=== PATIENT | male | born 1935 | race Caucasian/White ===

== ENCOUNTER 2018-04-07 13:22 | Inpatient (IN) | payer MEDICARE, OTHER ==
--- NOTE | 2018-04-07 15:06 | EDM.PDOC ---
ED HPI GENERAL MEDICAL PROBLEM - General Chief Complaint: Cardiovascular Problem Stated Complaint: breathing problems swelling feet Time Seen by Provider: 04/07/18 14:35 Source of Information: Reports: Patient, Family History Limitations: Reports: No Limitations - History of Present Illness INITIAL COMMENTS - FREE TEXT/NARRATIVE: 83-year-old male with COPD, also coronary disease and a history of congestive heart failure has had increasing shortness of breath over the past 3 weeks. He has persistent and worsening peripheral edema and he feels generally swollen, even his eyelids. He is on prednisone and doxycycline as needed for COPD exacerbations and 20 mg of furosemide daily. He has had no pain. He has not recently taken prednisone or doxycycline. He does not have oxygen at home, every time he goes to the [place] his oxygen is "90", and it has to be less than 90 to get O2. He does have a nebulizer at home. On arrival to the emergency room he was dyspneic and O2 saturations were 86, 2 L of nasal cannula O2 was supplied which domenico his saturation to 91. Onset: Gradual Duration: Week(s): (3 weeks) Worsens with: Reports: Other (Any walking or physical activity causes increased symptoms, also lying flat at night seems to increased shortness of breath) Associated Symptoms: Reports: Shortness of Breath, Weakness. Denies: Chest Pain , Cough, Fever/Chills - Related Data Allergies Allergy/AdvReac Type Severity Reaction Status Date / Time egg Allergy Mild Vomiting Verified 04/07/18 18:34 Home Meds: Home Meds Aspirin [Halfprin] 81 mg PO WITHDINNER 04/07/18 [History] Carvedilol [Coreg] 25 mg PO BID 04/07/18 [History] Diphenoxylate HCl/Atropine [Lomotil] 1 tab PO Q6H PRN 04/07/18 [History] Doxycycline Hyclate 100 mg PO BID PRN 04/07/18 [History] Furosemide 20 mg PO DAILY 04/07/18 [History] Lisinopril 0.5 tab PO DAILY 04/07/18 [History] predniSONE [Prednisone] 40 mg PO ASDIRECTED PRN 04/07/18 [History] Past Medical History HEENT History: Reports: Hard of Hearing, Impaired Vision Cardiovascular History: Reports: Aneurysm, Congenital Septal Defect, Hypertension, [place] Respiratory History: Reports: COPD Gastrointestinal History: Reports: Other (See Below) Other Gastrointestinal History: hernia Genitourinary History: Reports: Other (See Below) Other Genitourinary History: slow to start Oncologic (Cancer) History: Reports: Other (See Below) Other Oncologic History: skin - Infectious Disease History Infectious Disease History: Reports: None - Past Surgical History Head Surgeries/Procedures: Reports: None HEENT Surgical History: Reports: Tonsillectomy Cardiovascular Surgical History: Reports: AAA Repair, Carotid Stents Respiratory Surgical History: Reports: None GI Surgical History: Reports: None Male Surgical History: Reports: None Oncologic Surgical History: Reports: Other (See Below) Other Oncologic Surgeries/Procedures: removed Dermatological Surgical History: Reports: None Social & Family History - Family History Family Medical History: Noncontributory - Tobacco Use Smoking Status *Q: Former Smoker Years of Tobacco use: 60 Packs/Tins Daily: 2 Used Tobacco, but Quit: Yes Month/Year Tobacco Last Used: 2013 Second Hand Smoke Exposure: No - Caffeine Use Caffeine Use: Reports: Coffee, Soda - Alcohol Use Days Per Week of Alcohol Use: 1 Number of Drinks Per Day: 2 Total Drinks Per Week: 2 Date of Last Drink: 04/06/18 Time of Last Drink: 17:00 - Recreational Drug Use Recreational Drug Use: No ED ROS GENERAL - Review of Systems Review Of Systems: See Below Constitutional: Reports: Malaise. Denies: Fever, Chills HEENT: Reports: No Symptoms Respiratory: Reports: Shortness of Breath. Denies: Pleuritic Chest Pain, Hemoptysis Cardiovascular: Reports: Dyspnea on Exertion, Orthopnea. Denies: Chest Pain, Palpitations GI/Abdominal: Reports: Other (Has an abdominal hernia which is asymptomatic). Denies: Abdominal Pain, Nausea, Vomiting : Reports: No Symptoms Musculoskeletal: Reports: Other (Left foot pain from a recent trauma, his stepped on his foot) Skin: Reports: Bruising (On the top of the left foot) Neurological: Reports: Weakness Psychiatric: Reports: No Symptoms ED EXAM, GENERAL - Physical Exam Exam: See Below Exam Limited By: No Limitations General Appearance: Alert, No Apparent Distress, Other (Initially dyspneic, better after rest and O2) Eye Exam: Bilateral Eye: EOMI Throat/Mouth: Normal Inspection Head: Atraumatic Respiratory/Chest: No Respiratory Distress, Rales, Other (Decreased breath sounds at the bases bilaterally with a few rales) Cardiovascular: Regular Rate, Rhythm, Systolic Murmur (Fairly prominent 3/6 systolic murmur), Extra Beats (Few ectopic beats per minute) GI/Abdominal: Soft, Non-Tender Extremities: Pedal Edema (1+ pedal edema bilaterally, slightly worse on the left ) Neurological: Alert, Oriented Psychiatric: Normal Affect, Normal Mood Skin Exam: Warm, Dry Course - Vital Signs Last Recorded V/S: Last Vital Signs Temp 97.4 F 04/08/18 07:23 Pulse 72 04/08/18 07:35 Resp 16 04/08/18 07:23 BP 133/76 04/08/18 07:23 Pulse Ox 94 L 04/08/18 07:35 - Orders/Labs/Meds Orders: Medication Orders Acetaminophen (Tylenol) 650 mg PO Q4H PRN PRN Reason: Pain (Mild 1-3)/fever Albuterol (Proventil Neb Soln) 2.5 mg NEB Q4H PRN PRN Reason: Shortness Of Breath/wheezing Last Admin: 04/07/18 21:07 Dose: 2.5 mg Albuterol/Ipratropium (Duoneb 3.0-0.5 Mg/3 Ml) 3 ml NEB QIDRT [facility] Last Admin: 04/08/18 07:32 Dose: 3 ml Admin: 04/07/18 21:07 Dose: 3 ml Aspirin (Halfprin) 81 mg PO WITHDINNER [facility] Last Admin: 04/07/18 18:45 Dose: 81 mg Carvedilol (Coreg) 25 mg PO BIDMEALS [facility] Last Admin: 04/07/18 21:07 Dose: 25 mg Diphenoxylate HCl/Atropine (Lomotil 0.025-2.5 Mg) 1 tab PO Q6H PRN PRN Reason: Diarrhea Enoxaparin Sodium (Lovenox) 40 mg SUBCUT DAILY [facility] Last Admin: 04/07/18 18:45 Dose: 40 mg Formoterol Fumarate (Foradil) 12 mcg INH BID [facility] Last Admin: 04/07/18 20:58 Dose: Lisinopril (Prinivil) 2.5 mg PO DAILY [facility] Ondansetron HCl (Zofran) 4 mg IV Q4H PRN PRN Reason: Nausea/Vomiting Senna/Docusate Sodium (Senna Plus) 1 tab PO BID PRN PRN Reason: Constipation Sodium Chloride (Saline Flush) 10 ml FLUSH ASDIRECTED PRN PRN Reason: Keep Vein Open Labs: Laboratory Tests 04/07/18 04/07/18 Range/Units 15:00 15:00 WBC 6.8 (4.5-11.0) K/uL RBC 4.83 (4.30-5.90) M/uL Hgb 14.6 (12.0-15.0) g/dL Hct 45.0 (40.0-54.0) % MCV 93 (80-98) fL MCH 30 (27-31) pg MCHC 32 (32-36) % Plt Count 165 (150-400) K/uL Neut % (Auto) 62 (36-66) % Lymph % (Auto) 21 L (24-44) % [place] % (Auto) 13 H (2-6) % Eos % (Auto) 3 (2-4) % Baso % (Auto) 1 (0-1) % Sodium 138 L (140-148) mmol/L Potassium 4.1 (3.6-5.2) mmol/L Chloride 100 (100-108) mmol/L Carbon Dioxide 29 (21-32) mmol/L Anion Gap 13.1 (5.0-14.0) mmol/L BUN 26 H (7-18) mg/dL Creatinine 1.5 H (0.8-1.3) mg/dL Est Cr Clr Drug Dosing 39.88 mL/min Estimated GFR (MDRD) 45 L (>60) Glucose 103 (74-106) mg/dL Calcium 9.0 (8.5-10.1) mg/dL Total Bilirubin 0.8 (0.2-1.0) mg/dL AST 23 (15-37) U/L ALT 34 (12-78) U/L Alkaline Phosphatase 56 (46-116) U/L Troponin I 0.044 (0.000-0.056) ng/mL NT-Pro-B Natriuret Pep 57124 H (5-450) pg/mL Total Protein 6.1 L (6.4-8.2) g/dL Albumin 3.3 L (3.4-5.0) g/dL Globulin 2.8 (2.3-3.5) g/dL Albumin/Globulin Ratio 1.2 (1.2-2.2) Meds: Medications Generic Name Dose Route Start Last Admin Trade Name Kvngq PRN Reason Stop Dose Admin Acetaminophen 650 mg 04/07/18 18:12 Tylenol PO Q4H PRN Pain (Mild 1-3)/fever Albuterol 2.5 mg 04/07/18 18:12 04/07/18 21:07 Proventil Neb Soln NEB 2.5 mg Q4H PRN Administration Shortness Of Breath/wheezing Albuterol/Ipratropium 3 ml 04/07/18 21:00 04/08/18 07:32 Duoneb 3.0-0.5 Mg/3 Ml NEB 3 ml QIDRT CONNIE Administration Aspirin 81 mg 04/07/18 18:12 04/07/18 18:45 Halfprin PO 81 mg WITHDINNER CONNIE Administration Carvedilol 25 mg 04/07/18 19:00 04/07/18 21:07 Coreg PO 25 mg BIDMEALS CONNIE Administration Diphenoxylate HCl/Atropine 1 tab 04/07/18 18:12 Lomotil 0.025-2.5 Mg PO Q6H PRN Diarrhea Enoxaparin Sodium 40 mg 04/07/18 18:12 04/07/18 18:45 Lovenox SUBCUT 40 mg DAILY CONNIE Administration Formoterol Fumarate 12 mcg 04/07/18 21:00 04/07/18 20:58 Foradil INH Not Given BID [facility] Lisinopril 2.5 mg 04/08/18 09:00 Prinivil PO DAILY [facility] Ondansetron HCl 4 mg 04/07/18 18:12 Zofran IV Q4H PRN Nausea/Vomiting Senna/Docusate Sodium 1 tab 04/07/18 18:12 Senna Plus PO BID PRN Constipation Sodium Chloride 10 ml 04/07/18 18:12 Saline Flush FLUSH ASDIRECTED PRN Keep Vein Open Discontinued Medications Generic Name Dose Route Start Last Admin Trade Name Kvngq PRN Reason Stop Dose Admin Furosemide 40 mg 04/07/18 15:29 04/07/18 15:49 Lasix IVPUSH 04/07/18 15:30 40 mg ONETIME ONE Administration Furosemide 40 mg 04/08/18 07:00 Lasix IVPUSH 04/08/18 07:01 NOW ONE Sodium Chloride 10 ml 04/07/18 15:29 04/07/18 15:42 Saline Flush FLUSH 10 ml ASDIRECTED PRN Administration Keep Vein Open - Re-Assessments/Exams Free Text/Narrative Re-Assessment/Exam: 04/07/18 15:09 CBC, CMP, troponin and BNP were obtained as well as a two-view chest x-ray. 04/07/18 15:29 CBC was normal, chest x-ray shows moderate congestive heart failure. Patient was very winded when he came back from x-ray and oxygen needed to be resupplied. 04/07/18 15:54 Troponin is normal, BNP is almost 14,000. A saline lock was placed and he was given 40 mg of IV Lasix. His condition was discussed with the hospitalist service to consider admission for diuresis and evaluation for congestive heart failure. Departure - Departure Time of Disposition: 17:40 Disposition: Admitted As Inpatient 68 Condition: Fair Clinical Impression: Congestive heart failure Qualifiers: Heart failure type: unspecified Heart failure chronicity: acute on chronic Qualified Code(s): I50.9 - Heart failure, unspecified
[2018-04-07] MEDS ORDERED: Sodium Chloride 0.9% 10 ML Syringe FLUSH PRN ×2 (15:29→18:12)
[2018-04-07] MEDS ORDERED: Furosemide 40 MG/4 ML VIAL IVPUSH ONE (15:29)
--- NOTE | 2018-04-07 15:47 | CRLCR ---
Indication: Dyspnea Technique: Chest 2 views Comparison: None Findings/Impression: Cardiovascular and mediastinum: Mild cardiomegaly. A left chest cardiac pacer. Lungs and pleural spaces: Mild central pulmonary vascular congestion. An ill-defined right infrahilar opacity could represent atelectasis or evolving consolidation. Correlate clinically and followup. Mild blunting of the posterior costophrenic gutters could represent volume loss or small fluid. Bones and soft tissues: No significant findings. Dictated by Jak Kearney MD @ 04/07/2018 3:45:44 PM Dictated by: Jak Kearney MD @ 04/07/2018 15:46:14 (Electronically Signed)
[2018-04-07] MEDS ORDERED: Ondansetron 4 MG/2 ML SDV IV PRN (18:12)
[2018-04-07] MEDS ORDERED: Acetaminophen 325 MG Tab PO PRN (18:12)
[2018-04-07] MEDS ORDERED: Albuterol 0.083% 2.5 MG/3 ML Neb Soln NEB PRN (18:12)
[2018-04-07] MEDS ORDERED: Atropine/Diphenoxylate 0.025-2.5 MG Tab PO PRN (18:12)
--- NOTE | 2018-04-07 18:15 | PCM.HP ---
H&P History of Present Illness - General Date of Service: 04/07/18 Admit Problem/Dx: Admission Diagnosis/Problem Admission Diagnosis/Problem CHF, Congestive heart failure Source of Information: Patient, Family, Provider History Limitations: Reports: No Limitations - History of Present Illness Initial Comments - Free Text/Narative: Mr. Cardenas is an 83-year-old gentleman who was admitted through the emergency department with hypoxia and shortness of breath secondary to pulmonary edema with underlying congestive heart failure. He has a known history of coronary artery disease as well as congestive heart failure, reports his most recent echocardiogram in the fall showed an ejection fraction of 25%. He readily admits that he is not very careful about monitoring his salt intake. He also has known underlying COPD with a history of intermittent exacerbations. He has been prescribed prednisone and doxycycline to take with exacerbations, last took the medications 4-6 weeks ago. He reports this episode of shortness of breath is different than what he typically experiences, cough is not significantly increased and he is noted no significant wheezing. He has experienced progressive increase in peripheral edema with increased shortness of breath with activity. Also reports symptoms of PND as well as orthopnea. He is supposed to be weighing himself daily but has not done that recently as he feels that his scale is broken. Currently denies any symptoms of chest pain or pressure. - Related Data Allergies/Adverse Reactions: Allergies Allergy/AdvReac Type Severity Reaction Status Date / Time egg Allergy Cannot Verified 04/07/18 14:06 Remember Home Medications: Home Meds Aspirin [Halfprin] 81 mg PO WITHDINNER 04/07/18 [History] Carvedilol [Coreg] 25 mg PO BID 04/07/18 [History] Diphenoxylate HCl/Atropine [Lomotil] 1 tab PO Q6H PRN 04/07/18 [History] Doxycycline Hyclate 100 mg PO BID PRN 04/07/18 [History] Furosemide 20 mg PO DAILY 04/07/18 [History] Lisinopril 0.5 tab PO DAILY 04/07/18 [History] predniSONE [Prednisone] 40 mg PO ASDIRECTED PRN 04/07/18 [History] Past Medical History HEENT History: Reports: Hard of Hearing, Impaired Vision Cardiovascular History: Reports: Aneurysm, Congenital Septal Defect, Hypertension, [place] Respiratory History: Reports: COPD Gastrointestinal History: Reports: Other (See Below) Other Gastrointestinal History: hernia Genitourinary History: Reports: Other (See Below) Other Genitourinary History: slow to start Oncologic (Cancer) History: Reports: Other (See Below) Other Oncologic History: skin - Infectious Disease History Infectious Disease History: Reports: None - Past Surgical History Head Surgeries/Procedures: Reports: None HEENT Surgical History: Reports: Tonsillectomy Cardiovascular Surgical History: Reports: AAA Repair, Carotid Stents Respiratory Surgical History: Reports: None GI Surgical History: Reports: None Male Surgical History: Reports: None Oncologic Surgical History: Reports: Other (See Below) Other Oncologic Surgeries/Procedures: removed Dermatological Surgical History: Reports: None Social & Family History - Family History Family Medical History: Noncontributory - Tobacco Use Smoking Status *Q: Former Smoker Years of Tobacco use: 60 Packs/Tins Daily: 2 Used Tobacco, but Quit: Yes Month/Year Tobacco Last Used: 2013 Second Hand Smoke Exposure: No - Caffeine Use Caffeine Use: Reports: Coffee, Soda - Alcohol Use Days Per Week of Alcohol Use: 1 Number of Drinks Per Day: 2 Total Drinks Per Week: 2 Date of Last Drink: 04/06/18 Time of Last Drink: 17:00 - Recreational Drug Use Recreational Drug Use: No H&P Review of Systems - Review of Systems: Review Of Systems: See Below General: Reports: Weakness. Denies: Fever, Chills HEENT: Reports: No Symptoms Pulmonary: Reports: Shortness of Breath, Cough. Denies: Wheezing, Pleuritic Chest Pain, Sputum, Hemoptysis Cardiovascular: Reports: Dyspnea on Exertion, Orthopnea, PND, Edema. Denies: Chest Pain, Palpitations, Lightheadedness Gastrointestinal: Reports: No Symptoms Genitourinary: Reports: No Symptoms Musculoskeletal: Reports: No Symptoms Skin: Reports: No Symptoms Psychiatric: Reports: No Symptoms Neurological: Reports: No Symptoms Hematologic/Lymphatic: Reports: No Symptoms Immunologic: Reports: No Symptoms Exam - Exam Exam: See Below - Vital Signs Vital Signs: Last Vital Signs Temp 96.8 F 04/07/18 14:33 Pulse 75 04/07/18 14:33 Resp 18 04/07/18 14:33 BP 139/89 04/07/18 14:33 Pulse Ox 85 L 04/07/18 14:33 Weight: 178 lb - Exam Quality Assessment: Supplemental Oxygen, DVT Prophylaxis General: Alert, Oriented, Cooperative, Mild Distress HEENT: Conjunctiva Clear, Mucosa Moist & [place], Normal Nasal Septum, Posterior Pharynx Clear, Pupils Equal. No: Hearing Intact Neck: Supple, Trachea Midline, +2 Carotid Pulse wo Bruit Lungs: Clear to Auscultation, Normal Respiratory Effort, Decreased Breath Sounds , Rales. No: Rhonchi, Wheezing Cardiovascular: Regular Rate, Regular Rhythm, Normal S1, Normal S2. No: Systolic Murmur, Diastolic Murmur, Gallop/S3, Gallop/S4 GI/Abdominal Exam: Soft, Non-Tender, No Organomegaly, No Distention Back Exam: Normal Inspection, Full Range of Motion Extremities: Non-Tender, Pedal Edema Skin: Warm, Dry, Intact Neurological: Cranial Nerves Intact, Strength Equal Bilateral, Normal Speech, Normal Tone, Sensation Intact. No: Focal Deficit Neuro Extensive - Mental Status: Alert, Oriented x3, Normal Mood/Affect, Normal Cognition, Memory Intact - Patient Data Lab Results Last 24 hrs: Laboratory Results - last 24 hr 04/07/18 04/07/18 Range/Units 15:00 15:00 WBC 6.8 (4.5-11.0) K/uL RBC 4.83 (4.30-5.90) M/uL Hgb 14.6 (12.0-15.0) g/dL Hct 45.0 (40.0-54.0) % MCV 93 (80-98) fL MCH 30 (27-31) pg MCHC 32 (32-36) % Plt Count 165 (150-400) K/uL Neut % (Auto) 62 (36-66) % Lymph % (Auto) 21 L (24-44) % [place] % (Auto) 13 H (2-6) % Eos % (Auto) 3 (2-4) % Baso % (Auto) 1 (0-1) % Sodium 138 L (140-148) mmol/L Potassium 4.1 (3.6-5.2) mmol/L Chloride 100 (100-108) mmol/L Carbon Dioxide 29 (21-32) mmol/L Anion Gap 13.1 (5.0-14.0) mmol/L BUN 26 H (7-18) mg/dL Creatinine 1.5 H (0.8-1.3) mg/dL Est Cr Clr Drug Dosing 39.88 mL/min Estimated GFR (MDRD) 45 L (>60) Glucose 103 (74-106) mg/dL Calcium 9.0 (8.5-10.1) mg/dL Total Bilirubin 0.8 (0.2-1.0) mg/dL AST 23 (15-37) U/L ALT 34 (12-78) U/L Alkaline Phosphatase 56 (46-116) U/L Troponin I 0.044 (0.000-0.056) ng/mL NT-Pro-B Natriuret Pep 91223 H (5-450) pg/mL Total Protein 6.1 L (6.4-8.2) g/dL Albumin 3.3 L (3.4-5.0) g/dL Globulin 2.8 (2.3-3.5) g/dL Albumin/Globulin Ratio 1.2 (1.2-2.2) Result Diagrams: 04/07/18 15:00 04/07/18 15:00 *Q Meaningful Use (ADM) - VTE Risk Assess *Q Each Risk Factor Represents 1 Point: Swollen Legs, Current, Congestive heart failure (CHF), Abnormal Pulmonary Function (COPD) Total Score 1 Point Risk Factors: 3 Each Risk Factor Represents 2 Points: None Total Score 2 Point Risk Factors: 0 Each Risk Factor Represents 3 Points: Age 75 Years or Greater Total Score 3 Point Risk Factors: 3 Each Risk Factor Represents 5 Points: None Total Score 5 Point Risk Factors: 0 Venous Thromboembolism Risk Factor Score *Q: 6 Problem List Initiated/Reviewed/Updated: Yes Orders Last 24hrs: Active Orders 24 hr Category Date Time Status Patient Status Manage Transfer [TRANSFER] Routine ADT 04/07/18 16:33 Active Sodium Chloride 0.9% [Saline Flush] Med 04/07/18 15:29 Active 10 ml FLUSH ASDIRECTED PRN Saline Lock Insert [OM.PC] Routine Oth 04/07/18 15:29 Ordered Resuscitation Status Routine Resus Stat 04/07/18 16:35 Ordered Medication Orders Sodium Chloride (Saline Flush) 10 ml FLUSH ASDIRECTED PRN PRN Reason: Keep Vein Open Last Admin: 04/07/18 15:42 Dose: 10 ml Assessment/Plan Comment:: ASSESSMENT AND PLAN CONGESTIVE HEART FAILURE-I clear cause of increased shortness of breath and hypoxia combined with his underlying COPD. Recent increase in peripheral edema with shortness of breath, PND, and orthopnea. On initial evaluation found to have pulmonary edema, normal white blood cell count, no expiratory wheezing on exam. -2 g sodium diet -Furosemide 40 mg IV given in the emergency department, repeat in a.m. -Continue outpatient MICHELLE inhibitor and beta hema -Echocardiogram to reassess left ventricular function COPD-no evidence of acute exacerbation at the present time -Supplemental oxygen as needed -Assess need for home oxygen prior to discharge CHRONIC KIDNEY DISEASE STAGE III -Closely monitor urine output and renal function with diuresis MAINTENANCE ISSUES -DVT prophylaxis; Lovenox 40 mg subcutaneous daily -GI prophylaxis; not indicated -Vega catheter; not indicated -Nutrition; 2 g sodium diet -Nicotine dependence; not indicated, quit smoking 4 years ago CODE STATUS-FULL CODE ADMISSION STATUS-patient will be admitted to inpatient status, expect at least a 2 night hospital stay for evaluation and management of problems as outlined above. At the time of this admission I do not reasonably expected evaluation and management of this problem will require more than a 96 hour hospital stay. DISPOSITION-anticipate discharge to home after the hospital stay. PRIMARY CARE PROVIDER-[facility]
[2018-04-07] MEDS: Aspirin 81 MG Tab.EC PO SCH (18:45)
[2018-04-07] MEDS: Enoxaparin 40 MG/0.4 ML Syringe SUBCUT SCH (18:45)
[2018-04-07] MEDS: Formoterol 12 MCG Inhalant Cap Kit of 12 INH SCH (20:58)
[2018-04-07] MEDS: Albuterol/Ipratropium 3.0-0.5 MG/3 ML Neb Soln NEB SCH (21:07)
[2018-04-07] MEDS: Carvedilol 25 MG Tab PO SCH (21:07)
[2018-04-08] MEDS ORDERED: Furosemide 40 MG/4 ML VIAL IVPUSH ONE (07:00)
[2018-04-08] MEDS: Albuterol/Ipratropium 3.0-0.5 MG/3 ML Neb Soln NEB SCH ×4 (07:32→21:28)
[2018-04-08] MEDS: Carvedilol 25 MG Tab PO SCH ×2 (08:37→17:31)
[2018-04-08] MEDS: Lisinopril 2.5 MG Tab PO SCH (08:38)
[2018-04-08] MEDS: Enoxaparin 40 MG/0.4 ML Syringe SUBCUT SCH (08:38)
[2018-04-08] MEDS: Formoterol 12 MCG Inhalant Cap Kit of 12 INH SCH (10:54)
--- NOTE | 2018-04-08 15:33 | PCM.PN ---
- General Info Date of Service: 04/08/18 Subjective Update: Mr. Cardenas is had a good diuresis since admission and feels improved with less shortness of breath. He does continue to get short of breath and hypoxic with exertion. He still has peripheral edema but it is modestly improved from admission. Vital signs have been stable and he has remained afebrile. Functional Status: Reports: Tolerating Diet, Ambulating, Urinating - Review of Systems General: Reports: Weakness. Denies: Fever, Chills Pulmonary: Reports: Shortness of Breath, Cough, Sputum. Denies: Pleuritic Chest Pain, Hemoptysis, Wheezing Cardiovascular: Reports: Dyspnea on Exertion, Edema. Denies: Chest Pain, Palpitations, Orthopnea, PND, Lightheadedness Gastrointestinal: Reports: No Symptoms - Patient Data Vitals - Most Recent: Last Vital Signs Temp 99.4 F 04/08/18 15:01 Pulse 70 04/08/18 15:01 Resp 20 04/08/18 15:01 BP 114/77 04/08/18 15:01 Pulse Ox 97 04/08/18 15:01 Weight - Most Recent: 188 lb 12.8 oz I&O - Last 24 Hours: Intake & Output 04/08/18 04/08/18 04/08/18 06:59 14:59 22:59 Intake Total 960 Output Total 1200 1700 250 Balance -1200 -740 -250 Lab Results Last 24 Hours: Laboratory Results - last 24 hr 04/07/18 04/08/18 04/08/18 Range/Units 15:00 04:45 04:45 WBC 5.8 (4.5-11.0) K/uL RBC 4.66 (4.30-5.90) M/uL Hgb 14.0 (12.0-15.0) g/dL Hct 44.0 (40.0-54.0) % MCV 94 (80-98) fL MCH 30 (27-31) pg MCHC 32 (32-36) % Plt Count 160 (150-400) K/uL Neut % (Auto) 57 (36-66) % Lymph % (Auto) 22 L (24-44) % [place] % (Auto) 15 H (2-6) % Eos % (Auto) 5 H (2-4) % Baso % (Auto) 1 (0-1) % Sodium 138 L 140 (140-148) mmol/L Potassium 4.1 4.0 (3.6-5.2) mmol/L Chloride 100 102 (100-108) mmol/L Carbon Dioxide 29 32 (21-32) mmol/L Anion Gap 13.1 5.7 (5.0-14.0) mmol/L BUN 26 H 33 H (7-18) mg/dL Creatinine 1.5 H 1.7 H (0.8-1.3) mg/dL Est Cr Clr Drug Dosing 39.88 35.19 mL/min Estimated GFR (MDRD) 45 L 39 L (>60) Glucose 103 103 (74-106) mg/dL Calcium 9.0 8.8 (8.5-10.1) mg/dL Magnesium 1.9 (1.8-2.4) mg/dL Total Bilirubin 0.8 (0.2-1.0) mg/dL AST 23 (15-37) U/L ALT 34 (12-78) U/L Alkaline Phosphatase 56 (46-116) U/L Troponin I 0.044 (0.000-0.056) ng/mL NT-Pro-B Natriuret Pep 65668 H (5-450) pg/mL Total Protein 6.1 L (6.4-8.2) g/dL Albumin 3.3 L (3.4-5.0) g/dL Globulin 2.8 (2.3-3.5) g/dL Albumin/Globulin Ratio 1.2 (1.2-2.2) Med Orders - Current: Current Medications Acetaminophen (Tylenol) 650 mg PO Q4H PRN PRN Reason: Pain (Mild 1-3)/fever Albuterol (Proventil Neb Soln) 2.5 mg NEB Q4H PRN PRN Reason: Shortness Of Breath/wheezing Last Admin: 04/07/18 21:07 Dose: 2.5 mg Albuterol/Ipratropium (Duoneb 3.0-0.5 Mg/3 Ml) 3 ml NEB QIDRT [facility] Last Admin: 04/08/18 14:39 Dose: 3 ml Aspirin (Halfprin) 81 mg PO WITHDINNER [facility] Last Admin: 04/07/18 18:45 Dose: 81 mg Carvedilol (Coreg) 25 mg PO BIDMEALS [facility] Last Admin: 04/08/18 08:37 Dose: 25 mg Diphenoxylate HCl/Atropine (Lomotil 0.025-2.5 Mg) 1 tab PO Q6H PRN PRN Reason: Diarrhea Enoxaparin Sodium (Lovenox) 40 mg SUBCUT DAILY [facility] Last Admin: 04/08/18 08:38 Dose: 40 mg Formoterol Fumarate (Foradil) 12 mcg INH BID [facility] Last Admin: 04/08/18 10:54 Dose: Not Given Furosemide (Lasix) 40 mg IVPUSH Q12H [facility] Lisinopril (Prinivil) 2.5 mg PO DAILY [facility] Last Admin: 04/08/18 08:38 Dose: 2.5 mg Ondansetron HCl (Zofran) 4 mg IV Q4H PRN PRN Reason: Nausea/Vomiting Senna/Docusate Sodium (Senna Plus) 1 tab PO BID PRN PRN Reason: Constipation Sodium Chloride (Saline Flush) 10 ml FLUSH ASDIRECTED PRN PRN Reason: Keep Vein Open Discontinued Medications Furosemide (Lasix) 40 mg IVPUSH ONETIME ONE Stop: 04/07/18 15:30 Last Admin: 04/07/18 15:49 Dose: 40 mg Furosemide (Lasix) 40 mg IVPUSH NOW ONE Stop: 04/08/18 07:01 Last Admin: 04/08/18 08:37 Dose: 40 mg Sodium Chloride (Saline Flush) 10 ml FLUSH ASDIRECTED PRN PRN Reason: Keep Vein Open Last Admin: 04/07/18 15:42 Dose: 10 ml - Exam Quality Assessment: Supplemental Oxygen, DVT Prophylaxis General: Alert, Oriented, Cooperative, Mild Distress Lungs: Clear to Auscultation, Normal Respiratory Effort, Decreased Breath Sounds. No: Wheezing Cardiovascular: Regular Rate, Regular Rhythm, Murmurs GI/Abdominal Exam: Soft, Non-Tender, No Organomegaly, No Distention Extremities: Non-Tender, Pedal Edema - Problem List Review Problem List Initiated/Reviewed/Updated: Yes - My Orders Last 24 Hours: My Active Orders 04/07/18 16:35 Resuscitation Status Routine 04/07/18 18:12 Patient Status [ADT] Routine Ambulate [RC] QID Cardiac Monitoring [RC] .As Directed Height and Weight [RC] 0500 Intake and Output [RC] QSHIFT Notify Provider Vital Signs [RC] ASDIRECTED Oxygen Therapy [RC] PRN RT Aerosol Therapy [RC] ASDIRECTED Up With Assistance [RC] ASDIRECTED Up to Chair [RC] QID VTE/DVT Education [RC] Per Unit Routine Vital Signs [RC] Q4H Acetaminophen [Tylenol] 650 mg PO Q4H PRN Albuterol [Proventil Neb Soln] 2.5 mg NEB Q4H PRN Aspirin [Halfprin] 81 mg PO WITHDINNER Atropine/Diphenoxylate [Lomotil 0.025-2.5 MG] 1 tab PO Q6H PRN Docusate Sodium/Sennosides [Senna Plus] 1 tab PO BID PRN Enoxaparin [Lovenox] 40 mg SUBCUT DAILY Ondansetron [Zofran] 4 mg IV Q4H PRN Sodium Chloride 0.9% [Saline Flush] 10 ml FLUSH ASDIRECTED PRN Saline Lock Insert [OM.PC] Routine 04/07/18 19:00 Carvedilol [Coreg] 25 mg PO BIDMEALS 04/07/18 21:00 Albuterol/Ipratropium [DuoNeb 3.0-0.5 MG/3 ML] 3 ml NEB QIDRT Formoterol Fumarate [Foradil] 12 mcg INH BID 04/08/18 08:00 Echo Comp wo Cont [US] Urgent 04/08/18 09:00 Lisinopril [Prinivil] 2.5 mg PO DAILY 04/08/18 19:00 Furosemide [Lasix] 40 mg IVPUSH Q12H 04/09/18 05:00 BASIC METABOLIC PANEL,BMP [CHEM] Timed - Plan Plan:: ASSESSMENT AND PLAN CONGESTIVE HEART FAILURE-modest improvement in shortness of breath and peripheral edema since admission. 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 -2 g sodium diet -Furosemide 40 mg IV every 12 hours -Continue outpatient MICHELLE inhibitor and beta hema -Transfer to [facility] in [place] when bed becomes available COPD-no evidence of acute exacerbation at the present time -Supplemental oxygen as needed -Assess need for home oxygen prior to discharge CHRONIC KIDNEY DISEASE STAGE III-creatinine elevated slightly from admission, will continue to monitor -Closely monitor urine output and renal function with diuresis MAINTENANCE ISSUES -DVT prophylaxis; Lovenox 40 mg subcutaneous daily -GI prophylaxis; not indicated -Vega catheter; not indicated -Nutrition; 2 g sodium diet -Nicotine dependence; not indicated, quit smoking 4 years ago CODE STATUS-FULL CODE ADMISSION STATUS-patient will be admitted to inpatient status, expect at least a 2 night hospital stay for evaluation and management of problems as outlined above. At the time of this admission I do not reasonably expected evaluation and management of this problem will require more than a 96 hour hospital stay. DISPOSITION-anticipate discharge to home after the hospital stay. PRIMARY CARE PROVIDER-[facility]
[2018-04-08] MEDS: Aspirin 81 MG Tab.EC PO SCH (17:31)
[2018-04-08] MEDS: Furosemide 40 MG/4 ML VIAL IVPUSH SCH (18:09)
[2018-04-08] MEDS: Arformoterol 15 MCG/2 ML Neb Soln INH SCH (21:29)
[2018-04-09] MEDS: Albuterol/Ipratropium 3.0-0.5 MG/3 ML Neb Soln NEB SCH ×4 (07:20→20:06)
[2018-04-09] MEDS: Arformoterol 15 MCG/2 ML Neb Soln INH SCH ×2 (07:32→20:06)
[2018-04-09] MEDS: Furosemide 40 MG/4 ML VIAL IVPUSH SCH ×2 (07:39→19:58)
[2018-04-09] MEDS: Carvedilol 25 MG Tab PO SCH ×2 (07:40→17:03)
[2018-04-09] MEDS: Enoxaparin 40 MG/0.4 ML Syringe SUBCUT SCH (08:06)
[2018-04-09] MEDS: Lisinopril 2.5 MG Tab PO SCH (08:06)
--- NOTE | 2018-04-09 12:15 | PCM.PN ---
- General Info Date of Service: 04/09/18 Subjective Update: Mr. Cardenas has improved since admission with less shortness of breath and less peripheral edema. He did experience an excellent diuresis yesterday, on twice daily dosing of furosemide. Vital signs have been good and he has remained afebrile. Functional Status: Reports: Tolerating Diet, Ambulating, Urinating - Review of Systems General: Denies: Fever, Weakness, Chills Pulmonary: Reports: Shortness of Breath. Denies: Pleuritic Chest Pain, Cough, Sputum, Hemoptysis, Wheezing Cardiovascular: Reports: Dyspnea on Exertion, Edema. Denies: Chest Pain, Palpitations, Orthopnea, PND, Lightheadedness Gastrointestinal: Reports: No Symptoms - Patient Data Vitals - Most Recent: Last Vital Signs Temp 96.8 F 04/09/18 10:27 Pulse 62 04/09/18 10:54 Resp 18 04/09/18 10:27 BP 110/67 04/09/18 10:27 Pulse Ox 95 04/09/18 10:54 Weight - Most Recent: 185 lb 12.8 oz I&O - Last 24 Hours: Intake & Output 04/08/18 04/09/18 04/09/18 22:59 06:59 14:59 Intake Total 600 200 716 Output Total 2050 800 1100 Balance -9820 600 -384 Lab Results Last 24 Hours: Laboratory Results - last 24 hr 04/09/18 Range/Units 05:00 Sodium 143 (140-148) mmol/L Potassium 3.9 (3.6-5.2) mmol/L Chloride 101 (100-108) mmol/L Carbon Dioxide 35 H (21-32) mmol/L Anion Gap 10.9 (5.0-14.0) mmol/L BUN 31 H (7-18) mg/dL Creatinine 1.5 H (0.8-1.3) mg/dL Est Cr Clr Drug Dosing 39.98 mL/min Estimated GFR (MDRD) 45 L (>60) Glucose 99 (74-106) mg/dL Calcium 8.7 (8.5-10.1) mg/dL Med Orders - Current: Current Medications Acetaminophen (Tylenol) 650 mg PO Q4H PRN PRN Reason: Pain (Mild 1-3)/fever Last Admin: 04/09/18 07:40 Dose: 650 mg Albuterol (Proventil Neb Soln) 2.5 mg NEB Q4H PRN PRN Reason: Shortness Of Breath/wheezing Last Admin: 04/07/18 21:07 Dose: 2.5 mg Albuterol/Ipratropium (Duoneb 3.0-0.5 Mg/3 Ml) 3 ml NEB QIDRT [facility] Last Admin: 04/09/18 10:51 Dose: 3 ml Arformoterol Tartrate (Brovana) 15 mcg INH BIDRT [facility] Last Admin: 04/09/18 07:32 Dose: 15 mcg Aspirin (Halfprin) 81 mg PO WITHDINNER [facility] Last Admin: 04/08/18 17:31 Dose: 81 mg Carvedilol (Coreg) 25 mg PO BIDMEALS [facility] Last Admin: 04/09/18 07:40 Dose: 25 mg Diphenoxylate HCl/Atropine (Lomotil 0.025-2.5 Mg) 1 tab PO Q6H PRN PRN Reason: Diarrhea Enoxaparin Sodium (Lovenox) 40 mg SUBCUT DAILY [facility] Last Admin: 04/09/18 08:06 Dose: 40 mg Furosemide (Lasix) 40 mg IVPUSH Q12H [facility] Last Admin: 04/09/18 07:39 Dose: 40 mg Lisinopril (Prinivil) 2.5 mg PO DAILY [facility] Last Admin: 04/09/18 08:06 Dose: 2.5 mg Ondansetron HCl (Zofran) 4 mg IV Q4H PRN PRN Reason: Nausea/Vomiting Senna/Docusate Sodium (Senna Plus) 1 tab PO BID PRN PRN Reason: Constipation Sodium Chloride (Saline Flush) 10 ml FLUSH ASDIRECTED PRN PRN Reason: Keep Vein Open Discontinued Medications Formoterol Fumarate (Foradil) 12 mcg INH BID [facility] Last Admin: 04/08/18 10:54 Dose: Not Given Furosemide (Lasix) 40 mg IVPUSH ONETIME ONE Stop: 04/07/18 15:30 Last Admin: 04/07/18 15:49 Dose: 40 mg Furosemide (Lasix) 40 mg IVPUSH NOW ONE Stop: 04/08/18 07:01 Last Admin: 04/08/18 08:37 Dose: 40 mg Sodium Chloride (Saline Flush) 10 ml FLUSH ASDIRECTED PRN PRN Reason: Keep Vein Open Last Admin: 04/07/18 15:42 Dose: 10 ml - Exam Quality Assessment: Supplemental Oxygen, DVT Prophylaxis General: Alert, Oriented, Cooperative, No Acute Distress Lungs: Decreased Breath Sounds, Rales. No: Crackles, Rhonchi, Rub Cardiovascular: Regular Rate, Regular Rhythm, Murmurs GI/Abdominal Exam: Soft, Non-Tender, No Organomegaly, No Distention Extremities: Non-Tender, Pedal Edema - Problem List Review Problem List Initiated/Reviewed/Updated: Yes - My Orders Last 24 Hours: My Active Orders 04/08/18 19:00 Furosemide [Lasix] 40 mg IVPUSH Q12H 04/08/18 21:00 Arformoterol [Brovana] 15 mcg INH BIDRT 04/10/18 05:00 BASIC METABOLIC PANEL,BMP [CHEM] Timed MAGNESIUM [CHEM] Timed - Plan Plan:: ASSESSMENT AND PLAN CONGESTIVE HEART FAILURE-further improvement in shortness of breath and peripheral edema with current management -2 g sodium diet -Furosemide 40 mg IV every 12 hours -Continue outpatient MICHELLE inhibitor and beta hema COPD-no evidence of acute exacerbation at the present time -Supplemental oxygen as needed -Assess need for home oxygen prior to discharge CHRONIC KIDNEY DISEASE STAGE III-renal function has remained stable with diuresis -Closely monitor urine output and renal function with diuresis MAINTENANCE ISSUES -DVT prophylaxis; Lovenox 40 mg subcutaneous daily -GI prophylaxis; not indicated -Vega catheter; not indicated -Nutrition; 2 g sodium diet -Nicotine dependence; not indicated, quit smoking 4 years ago CODE STATUS-FULL CODE ADMISSION STATUS-patient will be admitted to inpatient status, expect at least a 2 night hospital stay for evaluation and management of problems as outlined above. At the time of this admission I do not reasonably expected evaluation and management of this problem will require more than a 96 hour hospital stay. DISPOSITION-anticipate discharge to home after the hospital stay. PRIMARY CARE PROVIDER-[facility]
[2018-04-09] MEDS: Aspirin 81 MG Tab.EC PO SCH (17:03)
[2018-04-10] MEDS: Albuterol/Ipratropium 3.0-0.5 MG/3 ML Neb Soln NEB SCH ×4 (07:21→21:18)
[2018-04-10] MEDS: Arformoterol 15 MCG/2 ML Neb Soln INH SCH ×2 (07:21→21:09)
[2018-04-10] MEDS: Lisinopril 2.5 MG Tab PO SCH (08:03)
[2018-04-10] MEDS: Carvedilol 25 MG Tab PO SCH ×2 (08:03→17:40)
[2018-04-10] MEDS: Furosemide 40 MG/4 ML VIAL IVPUSH SCH ×2 (08:04→19:39)
--- NOTE | 2018-04-10 09:43 | PCM.PN ---
- General Info Date of Service: 04/10/18 Subjective Update: Mr. Cardenas has had an excellent diuresis again yesterday with improvement in peripheral edema, shortness of breath, and oxygenation. This morning he is now oxygenating adequately on room air, does get short of breath with exertion. Edema has improved significantly since admission but not totally resolved. Functional Status: Reports: Tolerating Diet, Ambulating, Urinating - Review of Systems General: Denies: Fever, Weakness, Chills Pulmonary: Reports: Shortness of Breath. Denies: Pleuritic Chest Pain, Cough, Sputum, Hemoptysis, Wheezing Cardiovascular: Reports: Dyspnea on Exertion, Edema. Denies: Chest Pain, Palpitations, Orthopnea, PND, Lightheadedness Gastrointestinal: Reports: No Symptoms - Patient Data Vitals - Most Recent: Last Vital Signs Temp 97.3 F 04/10/18 07:48 Pulse 80 04/10/18 08:03 Resp 20 04/10/18 07:48 BP 149/95 H 04/10/18 08:03 Pulse Ox 91 L 04/10/18 07:48 Weight - Most Recent: 185 lb I&O - Last 24 Hours: Intake & Output 04/09/18 04/10/18 04/10/18 22:59 06:59 14:59 Intake Total 880 Output Total 2800 1100 400 Balance -1920 -1100 -400 Lab Results Last 24 Hours: Laboratory Results - last 24 hr 04/10/18 Range/Units 03:37 Sodium 142 (140-148) mmol/L Potassium 3.9 (3.6-5.2) mmol/L Chloride 101 (100-108) mmol/L Carbon Dioxide 35 H (21-32) mmol/L Anion Gap 9.9 (5.0-14.0) mmol/L BUN 32 H (7-18) mg/dL Creatinine 1.3 (0.8-1.3) mg/dL Est Cr Clr Drug Dosing 46.13 mL/min Estimated GFR (MDRD) 53 L (>60) Glucose 114 H (74-106) mg/dL Calcium 8.9 (8.5-10.1) mg/dL Magnesium 1.8 (1.8-2.4) mg/dL Med Orders - Current: Current Medications Acetaminophen (Tylenol) 650 mg PO Q4H PRN PRN Reason: Pain (Mild 1-3)/fever Last Admin: 04/09/18 07:40 Dose: 650 mg Albuterol (Proventil Neb Soln) 2.5 mg NEB Q4H PRN PRN Reason: Shortness Of Breath/wheezing Last Admin: 04/07/18 21:07 Dose: 2.5 mg Albuterol/Ipratropium (Duoneb 3.0-0.5 Mg/3 Ml) 3 ml NEB QIDRT [facility] Last Admin: 04/10/18 07:21 Dose: 3 ml Arformoterol Tartrate (Brovana) 15 mcg INH BIDRT [facility] Last Admin: 04/10/18 07:21 Dose: 15 mcg Aspirin (Halfprin) 81 mg PO WITHDINNER [facility] Last Admin: 04/09/18 17:03 Dose: 81 mg Carvedilol (Coreg) 25 mg PO BIDMEALS [facility] Last Admin: 04/10/18 08:03 Dose: 25 mg Diphenoxylate HCl/Atropine (Lomotil 0.025-2.5 Mg) 1 tab PO Q6H PRN PRN Reason: Diarrhea Enoxaparin Sodium (Lovenox) 40 mg SUBCUT DAILY [facility] Last Admin: 04/09/18 08:06 Dose: 40 mg Furosemide (Lasix) 40 mg IVPUSH Q12H [facility] Last Admin: 04/10/18 08:04 Dose: 40 mg Lisinopril (Prinivil) 2.5 mg PO DAILY [facility] Last Admin: 04/10/18 08:03 Dose: 2.5 mg Ondansetron HCl (Zofran) 4 mg IV Q4H PRN PRN Reason: Nausea/Vomiting Senna/Docusate Sodium (Senna Plus) 1 tab PO BID PRN PRN Reason: Constipation Sodium Chloride (Saline Flush) 10 ml FLUSH ASDIRECTED PRN PRN Reason: Keep Vein Open Discontinued Medications Formoterol Fumarate (Foradil) 12 mcg INH BID [facility] Last Admin: 04/08/18 10:54 Dose: Not Given Furosemide (Lasix) 40 mg IVPUSH ONETIME ONE Stop: 04/07/18 15:30 Last Admin: 04/07/18 15:49 Dose: 40 mg Furosemide (Lasix) 40 mg IVPUSH NOW ONE Stop: 04/08/18 07:01 Last Admin: 04/08/18 08:37 Dose: 40 mg Sodium Chloride (Saline Flush) 10 ml FLUSH ASDIRECTED PRN PRN Reason: Keep Vein Open Last Admin: 04/07/18 15:42 Dose: 10 ml - Exam Quality Assessment: DVT Prophylaxis. No: Supplemental Oxygen General: Alert, Oriented, Cooperative, Mild Distress Lungs: Clear to Auscultation, Normal Respiratory Effort, Decreased Breath Sounds Cardiovascular: Regular Rate, Regular Rhythm, Murmurs GI/Abdominal Exam: Soft, Non-Tender, No Organomegaly, No Distention Extremities: Non-Tender, Pedal Edema - Problem List Review Problem List Initiated/Reviewed/Updated: Yes - My Orders Last 24 Hours: My Active Orders 04/10/18 09:40 Discontinue Telemetry Monitoring [Cardiac Monitoring Discontinue] [RC] Click to Edit 04/11/18 05:00 BASIC METABOLIC PANEL,BMP [CHEM] Timed - Plan Plan:: ASSESSMENT AND PLAN CONGESTIVE HEART FAILURE-further improvement in shortness of breath and peripheral edema with current management -2 g sodium diet -Furosemide 40 mg IV every 12 hours -Continue outpatient MICHELLE inhibitor and beta hema COPD-no evidence of acute exacerbation at the present time -Supplemental oxygen as needed -Assess need for home oxygen prior to discharge CHRONIC KIDNEY DISEASE STAGE III-renal function has remained stable with diuresis -Closely monitor urine output and renal function with diuresis MAINTENANCE ISSUES -DVT prophylaxis; Lovenox 40 mg subcutaneous daily -GI prophylaxis; not indicated -Vega catheter; not indicated -Nutrition; 2 g sodium diet -Nicotine dependence; not indicated, quit smoking 4 years ago CODE STATUS-FULL CODE ADMISSION STATUS-patient will be admitted to inpatient status, expect at least a 2 night hospital stay for evaluation and management of problems as outlined above. At the time of this admission I do not reasonably expected evaluation and management of this problem will require more than a 96 hour hospital stay. DISPOSITION-anticipate discharge to home in one to 2 days PRIMARY CARE PROVIDER-[facility]
[2018-04-10] MEDS: Enoxaparin 40 MG/0.4 ML Syringe SUBCUT SCH (11:16)
[2018-04-10] MEDS: Aspirin 81 MG Tab.EC PO SCH (17:40)
[2018-04-11] MEDS: Arformoterol 15 MCG/2 ML Neb Soln INH SCH ×2 (07:06→20:06)
[2018-04-11] MEDS: Albuterol/Ipratropium 3.0-0.5 MG/3 ML Neb Soln NEB SCH ×4 (07:06→20:18)
[2018-04-11] MEDS: Furosemide 40 MG/4 ML VIAL IVPUSH SCH (07:28)
[2018-04-11] MEDS: Carvedilol 25 MG Tab PO SCH ×2 (07:29→17:06)
[2018-04-11] MEDS: Enoxaparin 40 MG/0.4 ML Syringe SUBCUT SCH (09:43)
[2018-04-11] MEDS: Lisinopril 2.5 MG Tab PO SCH (09:44)
--- NOTE | 2018-04-11 10:25 | PCM.PN ---
- General Info Date of Service: 04/11/18 Subjective Update: There were no acute events overnight. He does continue to require supplemental oxygen though he was off for a little while yesterday. Good response to diuresis again yesterday. Shortness of breath steadily improving. Lower extremity edema much better again today but not resolved. He has been up and walking in the halls. Kidney function is stable. Functional Status: Reports: Pain Controlled, Tolerating Diet - Review of Systems General: Reports: Weakness Pulmonary: Reports: Shortness of Breath Cardiovascular: Reports: Edema - Patient Data Vitals - Most Recent: Last Vital Signs Temp 36.8 C 04/11/18 06:58 Pulse 72 04/11/18 07:29 Resp 20 04/11/18 06:58 BP 106/72 04/11/18 09:44 Pulse Ox 94 L 04/11/18 06:58 Weight - Most Recent: 81.556 kg I&O - Last 24 Hours: Intake & Output 04/10/18 04/11/18 04/11/18 22:59 06:59 14:59 Intake Total 800 400 356 Output Total 800 1250 1400 Balance 0 -850 -1044 Lab Results Last 24 Hours: Laboratory Results - last 24 hr 04/11/18 Range/Units 04:41 Sodium 144 (140-148) mmol/L Potassium 3.5 L (3.6-5.2) mmol/L Chloride 101 (100-108) mmol/L Carbon Dioxide 38 H (21-32) mmol/L Anion Gap 8.5 (5.0-14.0) mmol/L BUN 30 H (7-18) mg/dL Creatinine 1.3 (0.8-1.3) mg/dL Est Cr Clr Drug Dosing 46.13 mL/min Estimated GFR (MDRD) 53 L (>60) Glucose 104 (74-106) mg/dL Calcium 8.9 (8.5-10.1) mg/dL Med Orders - Current: Current Medications Acetaminophen (Tylenol) 650 mg PO Q4H PRN PRN Reason: Pain (Mild 1-3)/fever Last Admin: 04/09/18 07:40 Dose: 650 mg Albuterol (Proventil Neb Soln) 2.5 mg NEB Q4H PRN PRN Reason: Shortness Of Breath/wheezing Last Admin: 04/07/18 21:07 Dose: 2.5 mg Albuterol/Ipratropium (Duoneb 3.0-0.5 Mg/3 Ml) 3 ml NEB QIDRT [facility] Last Admin: 04/11/18 07:06 Dose: 3 ml Arformoterol Tartrate (Brovana) 15 mcg INH BIDRT [facility] Last Admin: 04/11/18 07:06 Dose: 15 mcg Aspirin (Halfprin) 81 mg PO WITHDINNER [facility] Last Admin: 04/10/18 17:40 Dose: 81 mg Carvedilol (Coreg) 25 mg PO BIDMEALS [facility] Last Admin: 04/11/18 07:29 Dose: 25 mg Diphenoxylate HCl/Atropine (Lomotil 0.025-2.5 Mg) 1 tab PO Q6H PRN PRN Reason: Diarrhea Enoxaparin Sodium (Lovenox) 40 mg SUBCUT DAILY [facility] Last Admin: 04/11/18 09:43 Dose: 40 mg Furosemide (Lasix) 40 mg IVPUSH Q12H [facility] Last Admin: 04/11/18 07:28 Dose: 40 mg Lisinopril (Prinivil) 2.5 mg PO DAILY [facility] Last Admin: 04/11/18 09:44 Dose: 2.5 mg Ondansetron HCl (Zofran) 4 mg IV Q4H PRN PRN Reason: Nausea/Vomiting Potassium Chloride (Klor-Con M20) 40 meq PO ONETIME ONE Stop: 04/11/18 10:31 Senna/Docusate Sodium (Senna Plus) 1 tab PO BID PRN PRN Reason: Constipation Sodium Chloride (Saline Flush) 10 ml FLUSH ASDIRECTED PRN PRN Reason: Keep Vein Open Discontinued Medications Formoterol Fumarate (Foradil) 12 mcg INH BID [facility] Last Admin: 04/08/18 10:54 Dose: Not Given Furosemide (Lasix) 40 mg IVPUSH ONETIME ONE Stop: 04/07/18 15:30 Last Admin: 04/07/18 15:49 Dose: 40 mg Furosemide (Lasix) 40 mg IVPUSH NOW ONE Stop: 04/08/18 07:01 Last Admin: 04/08/18 08:37 Dose: 40 mg Sodium Chloride (Saline Flush) 10 ml FLUSH ASDIRECTED PRN PRN Reason: Keep Vein Open Last Admin: 04/07/18 15:42 Dose: 10 ml - Exam Quality Assessment: Supplemental Oxygen General: Alert, Oriented, Cooperative, No Acute Distress Lungs: Normal Respiratory Effort, Crackles (rare lower lungs) Cardiovascular: Regular Rate, Regular Rhythm GI/Abdominal Exam: Soft, No Distention Extremities: Pedal Edema. No: Increased Warmth Skin: Warm, Dry Psy/Mental Status: Alert, Normal Affect - Problem List Review Problem List Initiated/Reviewed/Updated: Yes - My Orders Last 24 Hours: My Active Orders 04/11/18 10:24 Peripheral IV Discontinue [OM.PC] Routine 04/11/18 10:30 Potassium Chloride [Klor-Con M20] 40 meq PO ONETIME ONE 04/11/18 14:00 Furosemide [Lasix] 40 mg PO BIDDIURETIC 04/12/18 05:00 BASIC METABOLIC PANEL,BMP [CHEM] Timed - Plan Plan:: ASSESSMENT AND PLAN CONGESTIVE HEART FAILURE - ongoing improvement in symptoms and edema with diuresis. I think we may be nearing the end of our diuresis and will transition to oral medications to try to balance intake and output. -2 g sodium diet -Furosemide 40 mg by mouth twice daily -Continue outpatient MICHELLE inhibitor and beta hema COPD - no evidence of acute exacerbation. -Supplemental oxygen as needed -Assess need for home oxygen prior to discharge CHRONIC KIDNEY DISEASE STAGE III - renal function has remained stable with diuresis. -Closely monitor urine output and renal function with diuresis MAINTENANCE ISSUES -DVT prophylaxis; Lovenox 40 mg subcutaneous daily -GI prophylaxis; not indicated -Vega catheter; not indicated -Nutrition; 2 g sodium diet DISPOSITION - anticipate discharge to home tomorrow if stable overnight Jefferson Pedraza M.D.
[2018-04-11] MEDS ORDERED: Potassium Chloride 20 MEQ Tab.ER PO ONE (10:30)
[2018-04-11] MEDS: Furosemide 40 MG Tab PO SCH (14:07)
[2018-04-11] MEDS: Aspirin 81 MG Tab.EC PO SCH (17:06)
[2018-04-12] MEDS: Albuterol/Ipratropium 3.0-0.5 MG/3 ML Neb Soln NEB SCH ×3 (07:20→14:50)
[2018-04-12] MEDS: Arformoterol 15 MCG/2 ML Neb Soln INH SCH (07:22)
[2018-04-12] MEDS: Furosemide 40 MG Tab PO SCH ×2 (08:12→13:46)
[2018-04-12] MEDS: Carvedilol 25 MG Tab PO SCH (08:12)
[2018-04-12] MEDS: Lisinopril 2.5 MG Tab PO SCH (09:08)
[2018-04-12] MEDS: Enoxaparin 40 MG/0.4 ML Syringe SUBCUT SCH (09:10)
--- NOTE | 2018-04-12 10:49 | PCM.DCSUM1 ---
Discharge Summary - Hospital Course Brief History: 83-year-old male with history of COPD and systolic congestive heart failure who presented with increasing shortness of breath and peripheral edema. He was admitted for management of acute on chronic congestive heart failure Diagnosis: Stroke: No - Discharge Data Discharge Date: 04/12/18 Discharge Disposition: Home, Self-Care 01 Condition: Fair - Discharge Diagnosis/Problem(s) (1) Congestive heart failure SNOMED Code(s): 56920254 ICD Code: I50.9 - HEART FAILURE, UNSPECIFIED Status: Acute Current Visit : Yes Qualifiers: Heart failure type: systolic Heart failure chronicity: acute on chronic Qualified Code(s): I50.23 - Acute on chronic systolic (congestive) heart failure (2) COPD (chronic obstructive pulmonary disease) SNOMED Code(s): 57940786 ICD Code: J44.9 - CHRONIC OBSTRUCTIVE PULMONARY DISEASE, UNSPECIFIED Status : Chronic Current Visit: No Qualifiers: COPD type: unspecified COPD Qualified Code(s): J44.9 - Chronic obstructive pulmonary disease, unspecified (3) CKD (chronic kidney disease), stage III SNOMED Code(s): 158613398 ICD Code: N18.3 - CHRONIC KIDNEY DISEASE, STAGE 3 (MODERATE) Status: Chronic Current Visit: Yes - Patient Summary/Data Hospital Course: Yunior presented to the emergency room with progressive shortness of breath, peripheral edema and weight gain. Workup in the emergency room was suggestive of acute on chronic systolic congestive heart failure. He received furosemide in the emergency room and was admitted for further management. He was hypoxic upon arrival to the emergency room. Over the next couple of days he received twice daily IV diuresis and responded well. His weight and peripheral edema both improved fairly quickly with the diuresis. An echocardiogram was completed during the early part of the hospital stay and showed stable to slightly improved ejection fraction of around 30-35%. It had previously been closer to 25 %. He tolerated the diuresis very well with improvement in his kidney function throughout the course of the hospital stay. Initially his creatinine was about 1.9 and has improved to 1.3 with the diuresis. It has been stable at 1.3 for the last 3 days. Shortness breath has improved but has not completely resolved. He thinks that he is back to his baseline and is about as good as it gets as far as his breathing. He has been able to walk up and down the [place] some without a large increase in his shortness of breath. He has been hypoxic after completion of the walks. He is interested in home oxygen. I did increase his furosemide dosing from 20-40 mg daily. He may need additional slight titrations of this medication, possibly up to 60 mg but 40 seems to be balancing his intake and output based on our observations here in the hospital. He has early follow-up scheduled. He will be checking his weights regularly. - Patient Instructions Diet: Low Sodium Activity: As Tolerated Showering/Bathing: May Shower Notify Provider of: Fever, Increased Pain Other/Special Instructions: 1. You were in the hospital for management of acute on chronic systolic congestive heart failure. Your condition has been improving with diuretic therapy. I recommend that we increase your home dose from 20 mg a day to 40 mg a day. I would recommend that you weigh yourself every day or at least every couple of days. You should alert your primary care provider if you notice a gain of more than 2 pounds in a day or 3-4 pounds in a week. 2. Continue your other home medications as previously prescribed. 3. Follow up with Dr. Simpson as scheduled. 4. Seek medical attention if you have fever greater than 101, severe shortness of breath, significant increase in your edema or if you gain significant weight (3-4 lbs)over the course of several days. - Discharge Plan *PRESCRIPTION DRUG MONITORING PROGRAM REVIEWED*: Not Applicable *COPY OF PRESCRIPTION DRUG MONITORING REPORT IN PATIENT NARESH: Not Applicable Prescriptions/Med Rec: Furosemide [Lasix] 40 mg PO DAILY #30 tablet Home Medications: Home Meds Aspirin [Halfprin] 81 mg PO WITHDINNER 04/07/18 [History] Carvedilol [Coreg] 25 mg PO BID 04/07/18 [History] Diphenoxylate HCl/Atropine [Lomotil] 1 tab PO Q6H PRN 04/07/18 [History] Doxycycline Hyclate 100 mg PO BID PRN 04/07/18 [History] Lisinopril 0.5 tab PO DAILY 04/07/18 [History] predniSONE [Prednisone] 40 mg PO ASDIRECTED PRN 04/07/18 [History] Furosemide [Lasix] 40 mg PO DAILY #30 tablet 04/12/18 [Rx] Oxygen Therapy Mode: Nasal Cannula Oxygen Flow Rate (L/min): 2 Patient Handouts: Furosemide tablets, Chronic Obstructive Pulmonary Disease, [id number], Heart Failure, [id number] Referrals: Luciana Simpson MD [Physician] - 04/16/18 1:30 pm - Discharge Summary/Plan Comment DC Time >30 min.: Yes (40 - setting up home oxygen) - Patient Data Vitals - Most Recent: Last Vital Signs Temp 37.3 C 04/12/18 08:10 Pulse 79 04/12/18 08:12 Resp 20 04/12/18 08:10 BP 112/57 L 04/12/18 09:08 Pulse Ox 91 L 04/12/18 08:10 Weight - Most Recent: 81.647 kg I&O - Last 24 hours: Intake & Output 04/11/18 04/12/18 04/12/18 22:59 06:59 14:59 Intake Total 240 120 500 Output Total 1700 300 800 Balance -1460 -180 -300 Lab Results - Last 24 hrs: Laboratory Results - last 24 hr 04/12/18 Range/Units 05:44 Sodium 141 (140-148) mmol/L Potassium 3.9 (3.6-5.2) mmol/L Chloride 100 (100-108) mmol/L Carbon Dioxide 36 H (21-32) mmol/L Anion Gap 8.9 (5.0-14.0) mmol/L BUN 30 H (7-18) mg/dL Creatinine 1.3 (0.8-1.3) mg/dL Est Cr Clr Drug Dosing 46.13 mL/min Estimated GFR (MDRD) 53 L (>60) Glucose 100 (74-106) mg/dL Calcium 8.8 (8.5-10.1) mg/dL Med Orders - Current: Current Medications Acetaminophen (Tylenol) 650 mg PO Q4H PRN PRN Reason: Pain (Mild 1-3)/fever Last Admin: 04/09/18 07:40 Dose: 650 mg Albuterol (Proventil Neb Soln) 2.5 mg NEB Q4H PRN PRN Reason: Shortness Of Breath/wheezing Last Admin: 04/07/18 21:07 Dose: 2.5 mg Albuterol/Ipratropium (Duoneb 3.0-0.5 Mg/3 Ml) 3 ml NEB QIDRT CONNIE Last Admin: 04/12/18 07:20 Dose: 3 ml Arformoterol Tartrate (Brovana) 15 mcg INH BIDRT COUNT INCLUDES THE [facility] Last Admin: 04/12/18 07:22 Dose: 15 mcg Aspirin (Halfprin) 81 mg PO WITHDINNER COUNT INCLUDES THE [facility] Last Admin: 04/11/18 17:06 Dose: 81 mg Carvedilol (Coreg) 25 mg PO BIDMEALS COUNT INCLUDES THE [facility] Last Admin: 04/12/18 08:12 Dose: 25 mg Diphenoxylate HCl/Atropine (Lomotil 0.025-2.5 Mg) 1 tab PO Q6H PRN PRN Reason: Diarrhea Enoxaparin Sodium (Lovenox) 40 mg SUBCUT DAILY COUNT INCLUDES THE [facility] Last Admin: 04/12/18 09:10 Dose: 40 mg Furosemide (Lasix) 40 mg PO BIDDIURETIC COUNT INCLUDES THE [facility] Last Admin: 04/12/18 08:12 Dose: 40 mg Lisinopril (Prinivil) 2.5 mg PO DAILY COUNT INCLUDES THE [facility] Last Admin: 04/12/18 09:08 Dose: 2.5 mg Ondansetron HCl (Zofran) 4 mg IV Q4H PRN PRN Reason: Nausea/Vomiting Senna/Docusate Sodium (Senna Plus) 1 tab PO BID PRN PRN Reason: Constipation Sodium Chloride (Saline Flush) 10 ml FLUSH ASDIRECTED PRN PRN Reason: Keep Vein Open Discontinued Medications Formoterol Fumarate (Foradil) 12 mcg INH BID COUNT INCLUDES THE [facility] Last Admin: 04/08/18 10:54 Dose: Not Given Furosemide (Lasix) 40 mg IVPUSH ONETIME ONE Stop: 04/07/18 15:30 Last Admin: 04/07/18 15:49 Dose: 40 mg Furosemide (Lasix) 40 mg IVPUSH NOW ONE Stop: 04/08/18 07:01 Last Admin: 04/08/18 08:37 Dose: 40 mg Furosemide (Lasix) 40 mg IVPUSH Q12H COUNT INCLUDES THE [facility] Last Admin: 04/11/18 07:28 Dose: 40 mg Potassium Chloride (Klor-Con M20) 40 meq PO ONETIME ONE Stop: 04/11/18 10:31 Last Admin: 04/11/18 11:06 Dose: 40 meq Sodium Chloride (Saline Flush) 10 ml FLUSH ASDIRECTED PRN PRN Reason: Keep Vein Open Last Admin: 04/07/18 15:42 Dose: 10 ml - Exam Quality Assessment: Reports: Supplemental Oxygen General: Reports: Alert, Oriented, Cooperative, No Acute Distress Lungs: Reports: Normal Respiratory Effort Cardiovascular: Reports: Regular Rate, Regular Rhythm GI/Abdominal Exam: Soft, No Distention Extremities: Pedal Edema Psy/Mental Status: Reports: Alert, Normal Affect
== END 2018-04-12 15:25 | disposition home or self-care (01) | DRG 291 ==
LOC: JP.ED 13:22 → JP.MS 16:33
PROVIDERS: ADMIT Hospitalist; ATTEND Internal Medicine
DX: I13.0 Hypertensive heart and chronic kidney disease with heart failure and stage 1 through stage 4 chronic kidney disease, or unspecified chronic kidney disease (principal); I50.23 Acute on chronic systolic (congestive) heart failure; N18.3 Chronic kidney disease, stage 3 (moderate); Z87.891 Personal history of nicotine dependence; J44.9 Chronic obstructive pulmonary disease, unspecified; I25.10 Atherosclerotic heart disease of native coronary artery without angina pectoris; I25.2 Old myocardial infarction; R09.02 Hypoxemia; I35.0 Nonrheumatic aortic (valve) stenosis; Z85.828 Personal history of other malignant neoplasm of skin; H54.7 Unspecified visual loss; H91.90 Unspecified hearing loss, unspecified ear; Z79.82 Long term (current) use of aspirin; Z79.52 Long term (current) use of systemic steroids; Z91.012 Allergy to eggs
CPT/HCPCS: 36415; 71046; 80048; 80053; 83735; 83880; 84484; 85025; 93306; 94640; 96374; 99285; 99285-25; A9270-GY; J1650; J1940; J7605; J7620-GY

== ENCOUNTER 2021-10-01 11:55 | Emergency (ER) | payer MEDICARE, OTHER | END 2021-10-01 13:43 | disposition home or self-care (01) | LOC: JP.ED 11:55 | DX: J18.9 Pneumonia, unspecified organism (principal); J44.9 Chronic obstructive pulmonary disease, unspecified; I10 Essential (primary) hypertension; I25.2 Old myocardial infarction; Z87.891 Personal history of nicotine dependence; Z91.012 Allergy to eggs; Z79.82 Long term (current) use of aspirin; Z79.899 Other long term (current) drug therapy | CPT/HCPCS: 71046; 71046-26; 99284 ==

== ENCOUNTER 2021-10-28 17:36 | Emergency (ER) | payer OTHER ==
[2021-10-28 18:50] LABS: ESTIMATED GFR 50 mL/min (>60)
[2021-10-28] MEDS ORDERED: Calcium Gluconate 10% 1 GM/10 ML SDV IVPUSH ONE (18:55)
[2021-10-28] MEDS ORDERED: Norepinephrine Bit/D5W Premix 4 MG in Premix Bag 1 BAG IV SCH (19:00)
[2021-10-28] MEDS ORDERED: Sodium Chloride 0.9% 100 ML IV ONE (21:34)
[2021-10-28] MEDS ORDERED: Iopamidol 612 MG/ML 100 ML Bottle IV ONE (21:34)
[2021-10-28] MEDS ORDERED: Cefepime 2 GM in Sodium Chloride 0.9% 50 ML IV ONE (22:11)
== END 2021-10-28 23:26 ==
LOC: JP.ED 17:36
DX: J18.9 Pneumonia, unspecified organism (principal); I13.0 Hypertensive heart and chronic kidney disease with heart failure and stage 1 through stage 4 chronic kidney disease, or unspecified chronic kidney disease; I50.23 Acute on chronic systolic (congestive) heart failure; N18.31 Chronic kidney disease, stage 3a; J44.9 Chronic obstructive pulmonary disease, unspecified; R50.9 Fever, unspecified; I95.9 Hypotension, unspecified; I25.2 Old myocardial infarction; Z91.012 Allergy to eggs; Z79.82 Long term (current) use of aspirin; Z79.899 Other long term (current) drug therapy; Z86.16 Personal history of COVID-19; Z87.891 Personal history of nicotine dependence; Z20.822 Contact with and (suspected) exposure to COVID-19
CPT/HCPCS: 36415; 71045; 74177; 80053; 81001; 83605; 83880; 84145; 84484; 85025; 87040; 87086; 87635; 93005; 96365; 96366; 96368; 96375; 99285; J0610; J0692; J3370; J3490; J7050; Q9967; U0002

== ENCOUNTER 2022-02-17 11:24 | Emergency (ER) | payer OTHER ==
[2022-02-17] MEDS ORDERED: Albuterol/Ipratropium 3.0-0.5 MG/3 ML Neb Soln NEB ONE (12:56)
[2022-02-17 13:07] LABS: CORONAVIRUS COVID-19 NAA NEGATIVE (NEGATIVE)
[2022-02-17 13:35] LABS: ESTIMATED GFR 54 mL/min (>60); TROPONIN I HIGH SENSITIVITY 36.8 pg/mL (<=60.3)
[2022-02-17] MEDS ORDERED: Sodium Chloride 0.9% 10 ML Syringe FLUSH PRN (14:15)
[2022-02-17] MEDS ORDERED: Furosemide 40 MG/4 ML VIAL IVPUSH ONE (14:15)
== END 2022-02-17 16:49 | disposition home or self-care (01) ==
LOC: JP.ED 11:24
DX: I11.0 Hypertensive heart disease with heart failure (principal); I50.23 Acute on chronic systolic (congestive) heart failure; I25.10 Atherosclerotic heart disease of native coronary artery without angina pectoris; I25.2 Old myocardial infarction; J44.9 Chronic obstructive pulmonary disease, unspecified; Z91.012 Allergy to eggs; Z79.82 Long term (current) use of aspirin; Z79.899 Other long term (current) drug therapy; Z20.822 Contact with and (suspected) exposure to COVID-19
CPT/HCPCS: 0241U; 36415; 71046; 80053; 83880; 84484; 85025; 94640; 96374; 99285; J1940; J3490; J7620

== ENCOUNTER 2022-04-09 12:15 | Emergency (ER) | payer OTHER | END 2022-04-09 15:27 | disposition home or self-care (01) | LOC: JP.ED 12:15 | DX: I95.9 Hypotension, unspecified (principal); E86.0 Dehydration; I25.10 Atherosclerotic heart disease of native coronary artery without angina pectoris; J44.9 Chronic obstructive pulmonary disease, unspecified; I11.0 Hypertensive heart disease with heart failure; I50.9 Heart failure, unspecified; I25.2 Old myocardial infarction; Z95.0 Presence of cardiac pacemaker; Z91.012 Allergy to eggs; Z79.82 Long term (current) use of aspirin; Z86.16 Personal history of COVID-19; Z79.899 Other long term (current) drug therapy; Z87.891 Personal history of nicotine dependence | CPT/HCPCS: 36415; 71045; 71045-26; 80048; 85025; 99285 ==

== ENCOUNTER 2022-04-15 14:16 | Inpatient (IN) | payer OTHER, MEDICARE ==
[2022-04-15] MEDS ORDERED: Lactated Ringers 1,000 ML IV SCH (15:00)
[2022-04-15] MEDS: fentaNYL 100 MCG/2 ML SDV IVPUSH ONE ×2 (15:16→15:24)
[2022-04-15] MEDS ORDERED: fentaNYL 50 MCG/ML SDV IVPUSH ONE (15:23)
[2022-04-15 16:09] LABS: ESTIMATED GFR 30 mL/min (>60)
[2022-04-15] MEDS ORDERED: Furosemide 40 MG/4 ML VIAL IVPUSH ONE (16:59)
[2022-04-15] MEDS ORDERED: Sodium Chloride 0.9% 10 ML Syringe FLUSH PRN (20:08)
[2022-04-15] MEDS ORDERED: [UNRECOGNIZED DRUG - OTHER] INH SCH (20:08)
[2022-04-15] MEDS ORDERED: FLUTICASONE PROPION INH SCH (20:08)
[2022-04-15] MEDS ORDERED: SALMETEROL INH SCH (20:08)
[2022-04-15] MEDS ORDERED: Ondansetron 4 MG/2 ML SDV IV PRN (20:08)
[2022-04-15] MEDS: Sodium Chloride 0.9% 1,000 ML IV SCH (20:59)
[2022-04-15] MEDS ORDERED: Formoterol/Mometasone 200-5 MCG 8.8 GM Inhaler IH SCH (21:00)
[2022-04-15] MEDS: Melatonin 3 MG Tab PO SCH (21:04)
[2022-04-15] MEDS: Acetaminophen 325 MG Tab PO PRN (21:40)
[2022-04-16] MEDS: Acetaminophen 325 MG Tab PO PRN ×2 (01:51→17:35)
[2022-04-16] MEDS: Morphine 2 MG/ML SYRINGE IVPUSH PRN ×4 (02:34→13:50)
[2022-04-16] MEDS: Sodium Chloride 0.9% 1,000 ML IV SCH (03:58)
[2022-04-16 05:35] LABS: ESTIMATED GFR 32 mL/min (>60)
[2022-04-16] MEDS: Formoterol/Mometasone 200-5 MCG 8.8 GM Inhaler IH SCH ×2 (07:57→20:09)
[2022-04-16] MEDS: Tiotropium Bromide 4 GM Inhalation Spray (2.5mcg/1 dose; 10 doses) INH SCH (08:06)
[2022-04-16] MEDS ORDERED: Bumetanide 2.5 MG/10 ML MDV IVPUSH SCH (08:30)
[2022-04-16] MEDS ORDERED: Tiotropium Bromide 4 GM Inhalation Spray (2.5mcg/1 dose; 10 doses) INH SCH (09:00)
[2022-04-16] MEDS: Spironolactone 25 MG Tab PO SCH (09:16)
[2022-04-16] MEDS: Apixaban 2.5 MG Tab PO SCH (09:18)
[2022-04-16] MEDS: atorvaSTATin 10 MG Tab PO SCH (09:20)
[2022-04-16] MEDS: Bumetanide 0.5 MG, Bumetanide 2.5 MG IVPUSH SCH ×4 (09:42→20:11)
[2022-04-16] MEDS: Metoprolol Succinate 25 MG Tab.ER PO SCH (09:43)
[2022-04-16 10:47] LABS: CORONAVIRUS COVID-19 NAA NEGATIVE (NEGATIVE)
[2022-04-16] MEDS: Aspirin 81 MG Tab.EC PO SCH (17:17)
[2022-04-16] MEDS: Melatonin 3 MG Tab PO SCH (20:11)
[2022-04-17] MEDS: Morphine 2 MG/ML SYRINGE IVPUSH PRN ×4 (00:28→21:39)
[2022-04-17] MEDS: Formoterol/Mometasone 200-5 MCG 8.8 GM Inhaler IH SCH ×2 (07:02→20:35)
[2022-04-17] MEDS: Tiotropium Bromide 4 GM Inhalation Spray (2.5mcg/1 dose; 10 doses) INH SCH (07:02)
[2022-04-17] MEDS: atorvaSTATin 10 MG Tab PO SCH (09:53)
[2022-04-17] MEDS: Apixaban 2.5 MG Tab PO SCH (09:53)
[2022-04-17] MEDS: Bumetanide 0.5 MG, Bumetanide 2.5 MG IVPUSH SCH ×4 (11:56→20:35)
[2022-04-17] MEDS: Spironolactone 25 MG Tab PO SCH (11:56)
[2022-04-17] MEDS: Tamsulosin 0.4 MG Cap.ER PO SCH (11:57)
[2022-04-17] MEDS: Acetaminophen 325 MG Tab PO PRN (11:57)
[2022-04-17] MEDS: Metoprolol Succinate 25 MG Tab.ER PO SCH (11:58)
[2022-04-17] MEDS: Aspirin 81 MG Tab.EC PO SCH ×2 (15:22→16:16)
[2022-04-17] MEDS: Melatonin 3 MG Tab PO SCH (20:35)
[2022-04-18] MEDS: Morphine 2 MG/ML SYRINGE IVPUSH PRN ×4 (01:29→20:41)
[2022-04-18] MEDS: Tiotropium Bromide 4 GM Inhalation Spray (2.5mcg/1 dose; 10 doses) INH SCH (07:18)
[2022-04-18] MEDS: Formoterol/Mometasone 200-5 MCG 8.8 GM Inhaler IH SCH ×2 (07:18→20:41)
[2022-04-18] MEDS: atorvaSTATin 10 MG Tab PO SCH (09:17)
[2022-04-18] MEDS: Tamsulosin 0.4 MG Cap.ER PO SCH (09:18)
[2022-04-18] MEDS: Bumetanide 0.5 MG, Bumetanide 2.5 MG IVPUSH SCH ×4 (09:18→20:45)
[2022-04-18] MEDS: Apixaban 2.5 MG Tab PO SCH (09:18)
[2022-04-18] MEDS: Metoprolol Succinate 25 MG Tab.ER PO SCH (09:19)
[2022-04-18] MEDS: Albuterol 0.083% 2.5 MG/3 ML Neb Soln NEB PRN (11:39)
[2022-04-18] MEDS: Aspirin 81 MG Tab.EC PO SCH (17:47)
[2022-04-18] MEDS: Melatonin 3 MG Tab PO SCH (20:40)
[2022-04-19] MEDS: Morphine 2 MG/ML SYRINGE IVPUSH PRN ×2 (01:38→09:32)
[2022-04-19] MEDS ORDERED: Bisacodyl 10 MG Supp RECTAL PRN (03:25)
[2022-04-19] MEDS: Formoterol/Mometasone 200-5 MCG 8.8 GM Inhaler IH SCH ×2 (07:33→21:11)
[2022-04-19] MEDS: Tiotropium Bromide 4 GM Inhalation Spray (2.5mcg/1 dose; 10 doses) INH SCH (07:34)
[2022-04-19] MEDS: Tamsulosin 0.4 MG Cap.ER PO SCH (08:02)
[2022-04-19] MEDS: Apixaban 2.5 MG Tab PO SCH (08:03)
[2022-04-19] MEDS: atorvaSTATin 10 MG Tab PO SCH (08:03)
[2022-04-19] MEDS: Metoprolol Succinate 25 MG Tab.ER PO SCH (08:03)
[2022-04-19] MEDS: Bumetanide 0.5 MG, Bumetanide 2.5 MG IVPUSH SCH ×6 (09:15→21:09)
[2022-04-19] MEDS ORDERED: Sodium Phosphate,Monobasic/Sodium Phosphate,Dibasic Enema 133 ML Bottle RECTAL ONE (12:02)
[2022-04-19] MEDS ORDERED: Polyethylene Glycol 3350 Powder 17 GM Packet PO ONE (14:00)
[2022-04-19] MEDS: Aspirin 81 MG Tab.EC PO SCH (17:29)
[2022-04-19] MEDS: Morphine 10 MG/0.5 ML Oral Syringe BUCCAL PRN ×2 (18:05→22:13)
[2022-04-19] MEDS: Melatonin 3 MG Tab PO SCH (21:11)
[2022-04-20] MEDS: Formoterol/Mometasone 200-5 MCG 8.8 GM Inhaler IH SCH ×2 (07:20→21:07)
[2022-04-20] MEDS: Tiotropium Bromide 4 GM Inhalation Spray (2.5mcg/1 dose; 10 doses) INH SCH (07:20)
[2022-04-20] MEDS: Morphine 10 MG/0.5 ML Oral Syringe BUCCAL PRN ×4 (07:57→18:23)
[2022-04-20] MEDS: Albuterol 0.083% 2.5 MG/3 ML Neb Soln NEB PRN (09:39)
[2022-04-20] MEDS: Apixaban 2.5 MG Tab PO SCH (09:48)
[2022-04-20] MEDS: atorvaSTATin 10 MG Tab PO SCH (09:49)
[2022-04-20] MEDS: Tamsulosin 0.4 MG Cap.ER PO SCH (09:49)
[2022-04-20] MEDS: Metoprolol Succinate 25 MG Tab.ER PO SCH (10:29)
[2022-04-20] MEDS ORDERED: Sodium Chloride 0.9% 500 ML IV ONE (10:32)
[2022-04-20] MEDS ORDERED: Polyethylene Glycol 3350 Powder 17 GM Packet PO ONE (14:20)
[2022-04-20] MEDS: Aspirin 81 MG Tab.EC PO SCH (17:18)
[2022-04-20] MEDS: Melatonin 3 MG Tab PO SCH (21:06)
[2022-04-21] MEDS: Morphine 10 MG/0.5 ML Oral Syringe BUCCAL PRN ×2 (00:59→08:04)
[2022-04-21] MEDS: Tiotropium Bromide 4 GM Inhalation Spray (2.5mcg/1 dose; 10 doses) INH SCH (07:00)
[2022-04-21] MEDS: Formoterol/Mometasone 200-5 MCG 8.8 GM Inhaler IH SCH (07:00)
[2022-04-21] MEDS: Apixaban 2.5 MG Tab PO SCH (08:07)
[2022-04-21] MEDS: Tamsulosin 0.4 MG Cap.ER PO SCH (08:07)
[2022-04-21] MEDS: atorvaSTATin 10 MG Tab PO SCH (08:08)
[2022-04-21] MEDS ORDERED: Bumetanide 1 MG Tab PO SCH (09:00)
== END 2022-04-21 10:35 | DRG 291 ==
LOC: JP.ED 14:16 → JP.MS 17:29
PROVIDERS: ADMIT Hospitalist; ATTEND Hospitalist
DX: I11.0 Hypertensive heart disease with heart failure (principal); I13.0 Hypertensive heart and chronic kidney disease with heart failure and stage 1 through stage 4 chronic kidney disease, or unspecified chronic kidney disease; I50.23 Acute on chronic systolic (congestive) heart failure; E87.1 Hypo-osmolality and hyponatremia; N18.4 Chronic kidney disease, stage 4 (severe); N32.0 Bladder-neck obstruction; Z95.0 Presence of cardiac pacemaker; Z95.5 Presence of coronary angioplasty implant and graft; E86.0 Dehydration; Z51.5 Encounter for palliative care; H54.7 Unspecified visual loss; I08.0 Rheumatic disorders of both mitral and aortic valves; I25.10 Atherosclerotic heart disease of native coronary artery without angina pectoris; J44.9 Chronic obstructive pulmonary disease, unspecified; N40.0 Benign prostatic hyperplasia without lower urinary tract symptoms; H91.90 Unspecified hearing loss, unspecified ear; Z95.810 Presence of automatic (implantable) cardiac defibrillator; Z99.81 Dependence on supplemental oxygen; Z79.51 Long term (current) use of inhaled steroids; Z79.82 Long term (current) use of aspirin; Z79.899 Other long term (current) drug therapy; Z98.49 Cataract extraction status, unspecified eye; Z98.890 Other specified postprocedural states; Z90.89 Acquired absence of other organs; Z87.891 Personal history of nicotine dependence
CPT/HCPCS: 0241U; 36415; 51701; 51702; 51798; 71045; 80048; 80053; 83605; 83735; 83880; 84145; 84484; 85025; 86140; 87040; 87635; 93306; 94640; 96361; 96374; 97110; 97162; 97530; 99285; A9270-GY; J2270; J3010; J3490; J7030; J7040; J7120; U0002